=== PATIENT | male | born 1985 | race Two or more races ===

== ENCOUNTER 2024-09-25 16:39 | Emergency (ER) | payer SELFPAY ==
[~2024-09-25] VITALS: Ht 162.6 cm; Wt 91.5 kg
[2024-09-25 17:53] LABS: Urine Bacteria None Seen /hpf (None Seen)
[2024-09-25 18:05] LABS: Basophils # (auto) 0 10 ^3/uL (0-0.2); Basophils % (auto) 0.2 % (0.0-2.0); Eosinophils # (auto) 0 10 ^3/uL (0-0.8); Hematocrit 45.4 % (41.0-53.0); Hemoglobin 15.2 g/dL (13.5-17.5); Lymphocytes # (auto) 1.1 10 ^3/uL (0.4-5.4); Lymphocytes % (auto) 7.6 % (10.0-50.0); Mean Corpuscular Hgb Conc. 33.5 g/dL (32.0-36.0); Mean Corpuscular Volume 86.6 fL (80.0-100.0); Monocytes # (auto) 0.5 10 ^3/uL (0-1.3); Monocytes % (auto) 3.7 % (0.0-12.0); Neutrophils # (auto) 12.4 10 ^3/uL (1.6-8.6); Neutrophils % (auto) 88.5 % (37.0-80.0); Nucleated Red Blood Cells % 0.1 %; Platelet Count (auto) 341 10^3/uL (140-450); Red Blood Cells 5.24 10^6/uL (4.5-5.90); Red Cell Distribution Width 13.5 % (11.8-14.3)
[2024-09-25 18:24] LABS: Urine Blood 3+ /uL (Negative); Urine Clarity Clear (Clear); Urine Color Light-Yellow (Yellow); Urine Mucus FEW (None Seen); Urine Protein, UAD Negative (Negative); Urine Specific Gravity 1.025 (1.001-1.035); Urine Squamous Epithelial Cell FEW /hpf (<5); Urine Urobilinogen Normal (Negative); Urine WBC 1 /HPF (0-3); Urine pH 5.5 (5.0-9.0)
[2024-09-25] MEDS: ONDANSETRON HCL 4 MG/2 ML VIAL IV ONE (18:30)
[2024-09-25 18:31] LABS: Alanine Aminotransferase 33 U/L (7-40); Alkaline Phosphatase 100 U/L (46-116); Anion Gap 7 (5-15); Aspartate Aminotransferase 23 U/L (13-40); BUN/Creatinine Ratio 12.1 (10.0-20.0); Bilirubin, Total 0.8 mg/dL (0.2-1.0); Blood Urea Nitrogen 15 mg/dL (9-23); Carbon Dioxide 27 mmol/L (20-31); Chloride 105 mmol/L (98-107); Lipase 38 U/L (12-53); Potassium 4.1 mmol/L (3.5-5.1); Sodium 139 mmol/L (136-145)
[2024-09-25] MEDS: MORPHINE SULFATE 4 MG/ML SYR/VIAL IV ONE (18:31)
[2024-09-25 18:34] LABS: Albumin 5.4 g/dL (3.2-4.8); Calcium 10.7 mg/dL (8.7-10.4); Glucose 138 mg/dL (74-106); Total Protein 8.6 g/dL (5.7-8.2)
--- NOTE | 2024-09-25 19:55 | ED.PDOC ---
GI ASSESSMENT HPI Comments 39 y.o male presents to the ED for a chief complaint of lower abdominal pain associated with nausea and vomiting that started earlier today. Patient describes pain as sharp, constant and non radiating. Patient denies any hematemesis, diarrhea, bleeding, fever, or chills. No other complaints reported. Chief Complaint: Abdominal Pain Time Seen by MD: 19:51 Primary Care Provider: NONE Reviewed Notes: Nurses Notes, Medications, Allergies Allergies: Coded Allergies: NO KNOWN ALLERGIES (Unverified , 09/25/24) Home Meds Active Scripts Hydrocodone-Acetaminophen (Hydrocodone Bitartrate/AC 5-325 mg) 1 Tab Tab, 1 TAB PO Q6HP PRN, #30 TAB Prov:LLOYD COMER MD 09/25/24 Tamsulosin Hcl (Flomax) 0.4 Mg Cap, 1 CAP PO DAILY for 30 Days, #30 CAP 11 Refills Prov:LLOYD COMER MD 09/25/24 Information Source: Patient Mode of Arrival: Ambulatory Timing: Hours Duration: Since onset Quality: Sharp Vomitus: Hard Stool: Normal Severity: Moderate Recent: None Recent Hx of: None Pain Location: Suprapubic Modifying Factors: Nothing Associated sign and symptoms: Nausea, Vomiting, Abdominal Pain Past Medical History PAST MEDICAL HISTORY: Denies Surgical History: Denies all surgeries Family History Family History: Reviewed,noncontributory to illness Social History Smoker: Non-Smoker Alcohol: Denies ETOH Use Drugs: Denies Drug Use Lives In: Home Constitutional: denies: chills, diaphoresis, fatigue, fever, malaise, sweats, weakness, others EENTM: denies: blurred vision, double vision, ear bleeding, ear discharge, ear drainage, ear pain, ear ringing, eye pain, eye redness, hearing loss, mouth pain, mouth swelling, nasal discharge, nose bleeding, nose congestion, nose pain, photophobia, tearing, throat pain, throat swelling, voice changes, others Respiratory: denies: cough, hemoptysis, orthopnea, SOB at rest, shortness of breath, SOB with excertion, stridor, wheezing, others Cardiovascular: denies: chest pain, dizzy spells, diaphoresis, Dyspnea on exertion, edema, irregular heart beat, left arm pain, lightheadedness, palpitations, PND, syncope, others Gastrointestinal: reports: abdominal pain, nausea, vomiting; denies: abdomen distended, blood streaked bowels, constipated, diarrhea, dysphagia, difficulty swallowing, hematemesis, melena, poor appetite, poor fluid intake, rectal bleeding, rectal pain, others Genitourinary: denies: burning, dysuria, flank pain, frequency, hematuria, incontinence, penile discharge, penile sore, pain, testicle pain, testicle swelling, urgency, others Neurological: denies: dizziness, fainting, headache, left sided numbness, left sided weakness, numbness, paresthesia, pre-existing deficit, right sided numbness, right sided weakness, seizure, speech problems, tingling, tremors, weakness, others Musculoskeletal: denies: back pain, gout, joint pain, joint swelling, muscle pain, muscle stiffness, neck pain, others Integumetry: denies: bruises, change in color, change in hair/nails, dryness, laceration, lesions, lumps, rash, wounds, others Allergic/Immunocompromised: denies: Difficulty Healing, Frequent Infections, Hives, Itching, others Hematologic/Lymphatic: denies: anemia, blood clots, easy bleeding, easy bruising, swollen glands, others Endocrine: denies: excessive hunger, excessive sweating, excessive thirst, excessive urination, flushing, intolerance to cold, intolerance to heat, unexpla ined weight gain, unexplained weight loss, others Psychiatric: denies: anxiety, bipolar disorder, depression, hopeless, panic disorder, schizophrenia, sleepless, suicidal, others All Other Systems: Reviewed and Negative Physical Exam General Appearance: No Apparent Distress, Normal HEENT: Normal ENT Inspection, Pharynx Normal, TMs Normal Neck: Full Range of Motion, Non-Tender, Normal, Normal Inspection Respiratory: Chest Non-Tender, Lungs Clear, No Accessory Muscle Use, No Respiratory Distress, Normal Breath Sounds Cardiovascular: No Edema, No JVD, No Murmur, No Gallop, Normal Peripheral Pulses, Regular Rate/Rhythm Breast Exam: Deferred Gastrointestinal: LLQ, RLQ, Tenderness Genitalia: Deferred Pelvic: Deferred Rectal: Deferred Extremities: No calf tenderness, Normal capillary refill, Normal inspection, Normal range of motion, Non-tender, No pedal edema Musculoskeletal : Apperance: Normal Neurologic: Alert, classification officer II-XII nml as Tested, No Motor Deficits, Normal Affect, Normal Mood, No Sensory Deficits Cerebellar Function: Normal Reflexes: Normal Skin: Dry, Normal Color, Warm Lymphatic: No Adenopathy Was a procedure done? Was a procedure done?: No GI differential Dx Differential Diagnosis: Appendicitis, Diverticular disease, Esophagitis, Gastroenteritis, Inflammatory BD X-Ray, Labs, Meds, VS Vital Signs Date Time Temp Pulse Resp B/P (MAP) Pulse Ox O2 Delivery O2 Flow Rate FiO2 09/25/24 20:42 99 20 130/87 09/25/24 18:31 77 19 139/90 09/25/24 18:08 98.6 77 19 139/90 (106) 95 98.6 09/25/24 18:08 77 19 95 Room Air 09/25/24 16:48 97.6 105 20 131/104 (113) 99 97.6 Lab Test 09/25/24 17:43 09/25/24 17:30 Range/Units White Blood Count 14.0 H 4.4-10.8 10^3/uL Red Blood Count 5.24 4.5-5.90 10^6/uL Hemoglobin 15.2 13.5-17.5 g/dL Hematocrit 45.4 41.0-53.0 % Mean Corpuscular Volume 86.6 80.0-100.0 fL Mean Corpuscular Hemoglobin 29.0 28.0-32.0 pg Mean Corpuscular Hemoglobin Concent 33.5 32.0-36.0 g/dL Red Cell Distribution Width 13.5 11.8-14.3 % Platelet Count 341 140-450 10^3/uL Mean Platelet Volume 7.7 6.9-10.8 fL Neutrophils (%) (Auto) 88.5 H 37.0-80.0 % Lymphocytes (%) (Auto) 7.6 L 10.0-50.0 % Monocytes (%) (Auto) 3.7 0.0-12.0 % Eosinophils (%) (Auto) 0.0 0.0-7.0 % Basophils (%) (Auto) 0.2 0.0-2.0 % Neutrophils # (Auto) 12.4 H 1.6-8.6 10 ^3/uL Lymphocytes # (Auto) 1.1 0.4-5.4 10 ^3/uL Monocytes # (Auto) 0.5 0-1.3 10 ^3/uL Eosinophils # (Auto) 0 0-0.8 10 ^3/uL Basophils # (Auto) 0 0-0.2 10 ^3/uL Nucleated Red Blood Cells 0.1 % Sodium Level 139 136-145 mmol/L Potassium Level 4.1 3.5-5.1 mmol/L Chloride Level 105 98-107 mmol/L Carbon Dioxide Level 27 20-31 mmol/L Anion Gap 7 5-15 Blood Urea Nitrogen 15 9-23 mg/dL Creatinine 1.24 0.700-1.30 mg/dL Glomerular Filtration Rate Calc 76 >90 mL/min BUN/Creatinine Ratio 12.1 10.0-20.0 Serum Glucose 138 H 74-106 mg/dL Calcium Level 10.7 H 8.7-10.4 mg/dL Total Bilirubin 0.8 0.2-1.0 mg/dL Aspartate Amino Transferase (AST) 23 13-40 U/L Alanine Aminotransferase (ALT) 33 7-40 U/L Alkaline Phosphatase 100 46-116 U/L Total Protein 8.6 H 5.7-8.2 g/dL Albumin 5.4 H 3.2-4.8 g/dL Lipase 38 12-53 U/L Urine Color Light-yellow Yellow Urine Clarity Clear Clear Urine pH 5.5 5.0-9.0 Urine Specific [place] 1.025 1.001-1.035 Urine Protein Negative Negative Urine Ketones 1+ H Negative Urine Blood 3+ H Negative /uL Urine Nitrite Negative Negative Urine Bilirubin Negative Negative Urine Urobilinogen Normal Negative mg/dL Urine Leukocyte Esterase Negative Negative /uL Urine RBC 68 0 - 3 /hpf Urine Microscopic WBC 1 0-3 /HPF Urine Squamous Epithelial Cells Few <5 /hpf Urine Bacteria None seen None Seen /hpf Urine Mucus Few None Seen Urine Glucose Normal Normal mg/dL Current Medications Medications (Trade) Dose Ordered Sig/Richard Route Start Time Stop Time Status Last Admin Morphine Sulfate 4 mg ONCE ONCE IV 09/25/24 18:30 09/25/24 18:31 DC 09/25/24 18:31 Ondansetron HCl (Zofran) 4 mg ONCE ONCE IV 09/25/24 18:30 09/25/24 18:31 DC 09/25/24 18:30 Time of 1ST Reevaluation: 19:53 Reevaluation 1ST: Unchanged Patient Education/Counseling: Diagnosis, Treatment, Prognosis Family Education/Counseling: Diagnosis, Treatment, Prognosis Departure 1 Departure Time of Disposition: 21:41 Impression: Primary Impression: Ureteral calculus, left Additional Impression: Ureteral colic Disposition: HOME / SELF CARE / HOMELESS Condition: Stable e-Prescriptions Hydrocodone-Acetaminophen (Hydrocodone Bitartrate/AC 5-325 mg) 1 Tab Tab 1 TAB PO Q6HP PRN, #30 TAB Prov: LLOYD COMER MD 09/25/24 Tamsulosin Hcl (Flomax) 0.4 Mg Cap 1 CAP PO DAILY for 30 Days, #30 CAP 11 Refills Prov: LLOYD COMER MD 09/25/24 Discharged With: Self Critical Care Note Critical Care Time?: No Stability Stability form required: No I personally scribed for LLOYD COMER MD ([email or web address]) on 09/25/24 at 19:55. Electronically submitted by Homa Hernández ([facility]). LLOYD COMER MD Sep 25, 2024 19:55
[2024-09-25] MEDS: IOHEXOL 300 MG/ML 100ML BOTTLE IJ ONE (20:36)
--- NOTE | 2024-09-25 21:01 | DVH ---
Indication: LLQ pain Technique: CT axial images of the abdomen and pelvis are obtained with intravenous contrast. Coronal and sagittal reformats were obtained. Radiation Dose Information: CTDI volume is 16.22 mGy. Dose-length product is 894.21 mGy*cm Comparison: None FINDINGS: The lung bases demonstrate no pleural effusion. Adrenal glands, spleen and pancreas unremarkable. No enhancing hepatic lesion. No CT evidence for cho lelithiasis. Right kidney demonstrates no hydronephrosis. Left kidney demonstrates moderate left hydroureteroneph rosis secondary to a distal left ureteral calculus measuring 3 mm. Left perinephric edema, stranding and delayed left nephrogram. Gastric distension small bowel loops normal in caliber. Moderate volume stool in the colon. Normal ap pendix. Abdominal aorta normal in caliber. Bladder partially distended. No free pelvic fluid. No inguinal ly mphadenopathy. No aggressive osseous process. Mild thoracolumbar degenerative disc disease. IMPRESSION: 1. Moderate left hydroureteronephrosis secondary to a distal left ureteral calculus measuring 3 mm. L eft perinephric edema and stranding, likely representing Resultant urinary tract infection/pyelonephr itis. Other findings as described.
[2024-09-25] MEDS ORDERED: HYDR-4902 PO ×2 (21:39→23:04)
[2024-09-25] MEDS ORDERED: TAMS-35 PO ×2 (21:39→23:04)
[2024-09-25] MEDS ORDERED: CEFD300C2 PO ×2 (21:44→23:04)
[2024-09-25] MEDS: cefTRIAXone 1GM/50ML D5W 50 ML IV ONE (22:08)
[2024-09-25] MEDS: TAMSULOSIN HYDROCHLORIDE 0.4 MG CAP PO ONE (22:08)
[2024-09-25] MEDS: KETOROLAC TROMETH 30 MG/ML 1ML VIAL IV ONE (22:08)
[2024-09-25 22:45] VITALS: BP 138/71; PULSE 74; RESP 18; TEMP 98.8; O2SAT 96
== END 2024-09-25 23:09 | disposition home or self-care (01) ==
LOC: ER 16:44
DX: N13.2 Hydronephrosis with renal and ureteral calculous obstruction (principal)
CPT/HCPCS: 36415; 74177; 80053; 81001; 83690; 85025; 96365; 96375; 99285; J0696; J1885; J2270; J2405; Q9967